=== PATIENT | male | born 1940 | race Two or more races ===

== ENCOUNTER 2025-05-23 16:51 | Inpatient (IN) | payer MEDICARE, MEDICAID ==
[~2025-05-23] VITALS: Ht 157.5 cm; Wt 63.0 kg
[2025-05-23] MEDS ORDERED: DOCU-412 PO (18:20)
[2025-05-23] MEDS ORDERED: QUET25TA PO (18:20)
[2025-05-23] MEDS ORDERED: TAMS0.4C94 PO (18:20)
[2025-05-23] MEDS ORDERED: NICO-650 TP (18:20)
[2025-05-23] MEDS ORDERED: FOLI0.4T6 PO (18:20)
[2025-05-23] MEDS ORDERED: FOLI-130 PO (18:20)
[2025-05-23] MEDS ORDERED: MVI PO (18:20)
[2025-05-23] MEDS ORDERED: LISI-892 PO (18:20)
[2025-05-23] MEDS ORDERED: THIA100T92 PO (18:20)
[2025-05-23] MEDS ORDERED: POLY17PO47 PO (18:20)
[2025-05-23] MEDS ORDERED: ATOR40TA28 PO (18:20)
[2025-05-23 18:24] LABS: PLATELET COUNT (AUTO) 311 K/uL (150-450); RED BLOOD CELL COUNT(AUTO) 4.83 MIL/uL (4.50-5.90); RED CELL DISTRIBUTION WIDTH 13.4 % (11.5-14.5); WHITE BLOOD COUNT (AUTO) 16.1 K/uL (4.5-11.0)
[2025-05-23 18:33] LABS: CALCIUM, TOTAL 8.9 mg/dL (8.8-10.5); CREATININE 0.43 mg/dL (0.60-1.30); GLOMERULAR FILTR. RATE CALC > 60 mL/min (>60); GLUCOSE,RANDOM 118 mg/dL (70-110); SODIUM SERUM 132 mmol/L (136-145); UREA NITROGEN, BLOOD 15 mg/dL (7-18)
[2025-05-23 19:02] LABS: COVID AG,FIA SOURCE NASAL SWAB
[2025-05-23 19:25] LABS: SARS-COV2 (COVID) ANTIGEN,FIA Negative (Negative)
[2025-05-23 20:17] LABS: APPEARANCE,URINE HAZY (CLEAR); GLUCOSE, URINE (UA) NEGATIVE (NEGATIVE); LEUKOCYTE ESTERASE ,URINE LARGE (NEGATIVE); NITRATE,URINE NEGATIVE (NEGATIVE); OCCULT BLOOD,URINE LARGE (NEGATIVE); PH,URINE DRUG SCREEN 6.5 (5.0-8.0); SPECIFIC GRAVITIY, URINE 1.021 (1.003-1.030)
[2025-05-23 20:22] LABS: ALCOHOL, URINE DRUG SCREEN NEGATIVE (NEGATIVE); AMPHET/METH SCREEN,URINE NEGATIVE (NEGATIVE); BARBITURATE SCREEN, URINE NEGATIVE (NEGATIVE); CANNABINOID SCREEN,URINE NEGATIVE (NEGATIVE); COCAINE SCREEN,URINE NEGATIVE (NEGATIVE); METHADONE SCREEN, URINE NEGATIVE (NEGATIVE)
[2025-05-23 20:45] LABS: SULFOSALICYLIC ACID,URINE 4+ (Negative)
[2025-05-23 20:46] LABS: SQUAMOUS EPITHELIAL CELL,UR Few /LPF (None Seen)
[2025-05-23] MEDS ORDERED: ONDANSETRON HCL 4 MG/2 ML VIAL IVP PRN (22:00)
[2025-05-23] MEDS ORDERED: IPRATROPIUM BROMIDE 0.5 MG/2.5 ML NEB SOLUTION NEB PRN (22:00)
[2025-05-23] MEDS ORDERED: MAGNESIUM HYDROXIDE SUSPENSION 30 ML UDCUP PO PRN (22:00)
[2025-05-23] MEDS ORDERED: ACETAMINOPHEN 325 MG TABLET PO PRN (22:00)
[2025-05-23] MEDS ORDERED: ALBUTEROL SULFATE 2.5 MG/0.5 ML NEB SOLUTION NEB PRN (22:00)
[2025-05-23] MEDS ORDERED: MORPHINE SULFATE 4 MG/ML SYRINGE IVP PRN (22:00)
[2025-05-23] MEDS ORDERED: BISACODYL 10 MG RECTAL RECTAL SUPPOSITORY PR PRN (22:00)
[2025-05-23] MEDS: CefTRIAXone 1 GM/DEXTROSE 50 ML IV SCH (23:28)
[2025-05-23] MEDS: HEPARIN SODIUM,PORCINE 5,000 UNITS/ML VIAL SQ SCH (23:29)
[2025-05-24 08:20] VITALS: BP 122/63; PULSE 68; RESP 20; TEMP 98.6; O2SAT 98
[2025-05-24] MEDS: PANTOPRAZOLE SODIUM 40 MG DR TABLET PO SCH (10:11)
[2025-05-24] MEDS: POLYETHYLENE GLYCOL 3350 17 GM PACKET PO SCH (10:11)
[2025-05-24] MEDS: FOLIC ACID 1 MG TABLET PO SCH (10:12)
[2025-05-24] MEDS: TAMSULOSIN HCL 0.4 MG CAPSULE PO SCH (10:12)
[2025-05-24 12:07] VITALS: BP 113/63; PULSE 70; RESP 20; TEMP 98.2; O2SAT 98
[2025-05-24 15:08] VITALS: BP 122/59; PULSE 81; RESP 20; TEMP 98.4; O2SAT 98
[2025-05-24 18:07] VITALS: BP 124/65; PULSE 98; RESP 20; TEMP 98.6; O2SAT 95
[2025-05-24 20:21] VITALS: BP 129/85; PULSE 93; RESP 20; TEMP 98.4; O2SAT 94
[2025-05-24] MEDS: ATORVASTATIN CALCIUM 40 MG TABLET PO SCH (20:25)
[2025-05-24] MEDS ORDERED: SODIUM CHLORIDE 0.9% 500 ML IV ONE (21:24)
[2025-05-24] MEDS: HYDROCODONE/ACETAMINOPHEN 5-325 MG TABLET PO PRN (21:35)
[2025-05-24] MEDS: ZOLPIDEM TARTRATE 5 MG TABLET PO PRN (21:35)
[2025-05-25 05:35] VITALS: BP 105/57; PULSE 57; RESP 20; TEMP 97.5; O2SAT 96
[2025-05-25 07:39] VITALS: BP 129/60; PULSE 60; RESP 18; TEMP 98.1; O2SAT 96
[2025-05-25 09:20] LABS: PLATELET COUNT (AUTO) 318 K/uL (150-450); RED BLOOD CELL COUNT(AUTO) 4.64 MIL/uL (4.50-5.90); RED CELL DISTRIBUTION WIDTH 13.3 % (11.5-14.5); WHITE BLOOD COUNT (AUTO) 10.7 K/uL (4.5-11.0)
[2025-05-25 13:13] VITALS: BP 124/63; PULSE 77; RESP 20; TEMP 98.6; O2SAT 100
[2025-05-25 13:24] LABS: ASPARTATE AMINOTRANSFERASE 23 U/L (15-37); CALCIUM, TOTAL 8.4 mg/dL (8.8-10.5); CREATININE 0.38 mg/dL (0.60-1.30); GLOMERULAR FILTR. RATE CALC > 60 mL/min (>60); GLUCOSE,RANDOM 86 mg/dL (70-110); SODIUM SERUM 134 mmol/L (136-145); TOTAL PROTEIN, SERUM 6.5 g/dL (6.4-8.2); UREA NITROGEN, BLOOD 20 mg/dL (7-18)
[2025-05-25 16:00] VITALS: BP 129/67; PULSE 76; RESP 20; TEMP 98.6; O2SAT 100
== END 2025-05-25 18:15 | DRG 871 ==
LOC: EMS 16:51 → EDH 05-24 02:27 → 5S 05-24 07:10
PROVIDERS: ADMIT Hospitalist; ATTEND Hospitalist
DX: A41.9 Sepsis, unspecified organism (principal); G93.41 Metabolic encephalopathy; N39.0 Urinary tract infection, site not specified; E78.5 Hyperlipidemia, unspecified; N40.0 Benign prostatic hyperplasia without lower urinary tract symptoms; F03.90 Unspecified dementia, unspecified severity, without behavioral disturbance, psychotic disturbance, mood disturbance, and anxiety; Z20.822 Contact with and (suspected) exposure to COVID-19; F25.9 Schizoaffective disorder, unspecified; I10 Essential (primary) hypertension; E11.9 Type 2 diabetes mellitus without complications; Z87.440 Personal history of urinary (tract) infections; Z79.899 Other long term (current) drug therapy
CPT/HCPCS: 71045; 80048; 80053; 80307; 81001; 81002; 85025; 87077; 87086; 87186; 93005; 99285; G0480; J0696; J1644; J7040; 36415-L1; 36415-TC